=== PATIENT | male | born 1935 | race Caucasian/White ===

== ENCOUNTER 2016-06-16 10:18 | Day surgery (SDC) | payer MEDICARE, OTHER ==
--- NOTE | 2016-06-15 12:11 | PCM.HPSURG ---
Subjective Date of Service: Jun 10, 2016 Referring Provider: Admitting Physician: Primary Care Physician: Janak Bain MD Attending Physician: Vinayak Jordan MD Chief Complaint SEE BELOW History of Present Illness Patient: Naveed Mar Date of : 1935 Visit Type: Pre Op Visit Date: 06/10/2016 10:15 AM Historian: self This 81 year old male presents for PreOp Aidan. L3-5 Lami and Right L5-S1 Lami & Facetectomy. History of Present Illness: 1. PreOp Aidan. L3-5 Lami, Right L5-S1 Lami & Facetectomy David Mar is a 81-year-old man referred by Primary Care provider (PCP) Dr. Franklin Bain with Script Supervisor Dr. Soha Cota M.D. who presents today' s date 06/10/2016 for a preoperative type of appointment concerning the decision for surgery involving bilateral L3-4 & L4-5 laminectomy, right L5-S1 laminectomy & facetectomy secondary to a diagnosis of lumbar spinal stenosis with radiculopathy with related complaints of severe, intractable, and debilitating lower back pain radiating to the right lower extremity. Incidentally the patient fell yesterday developed left torso pain. [facility] Emergency Department evaluation & imaging showed no fractured ribs therefore the patient likely suffered a contusion with pulled intercostals; & records request is pending. The patient's Neurosurgeon Dr. Vinayak Jordan M.D. was notified & has agreed to continue with surgery if the patient was properly consented for the possibility of increased pain secondary to operative positioning, denied significant shortness of breath, obtained recommended Cardiology clearance & participated in recommended breathing exercises postoperatively. The related symptoms are constant in frequency, aching in quality, mostly right posterior leg pain radiating to the heel for several months. The pain is rated 7 out of 10 on the analog pain scale. The symptoms have been worse in the right lower extremity compared to the lower back. There is no reported numbness and paresthesias in the right lower extremity distribution. Although the patient does complain of weakness in right lower extremity. The symptoms are worse with most activities of daily living including weightbearing, standing up straight, & ambulating. They improve only transiently with rest, analgesics, & activity modification. IMAGING: MRI scan of the lumbar spine demonstrates severe central stenosis & lateral recess stenosis at L3-4 & L4-5 & severe right-sided neuroforaminal stenosis at L5-S1. There is autofusion at L5-S1 disc space & severe hypertrophy in the L5-S1 facet joint causing compression of the L5 nerve root in the mid & lateral foramen. Treatments have included but are not limited to rest, ice, heat, activity modification, analgesics, & short-term relief from L5-S1 interlaminar & right transforaminal epidural steroid injections performed by Dr Abhilash Sharpe D.O. The patient denies any related complete or acute loss of control of bowel or bladder function, saddle paresthesia or anesthesia. After last evaluating the patient on 06/03/2016 Dr. Vinayak Jordan M.D. documented his clinical impression was intractable severe right leg pain. The results of the diagnostic injection suggest L5-S1 foramen. Pathology. The patient also has significant stenosis at L3-4 percent L4-5 levels. Having failed conservative management he is an appropriate candidate for surgical treatment. Dr. Jordan neurosurgical decompression of the lumbar spine & discussed all the risks and benefits associated with the procedure as well as reasonable expectations with regard to surgical outcomes with the patient and his . They elected to proceed with surgery as planned. The patient has a reported pertinent past medical, surgical, family, & social history for colon resection, prostate TURP, cervical spine, nose, right knee arthroscopically, left knee partial replacement, right eyelid cancer, right knee partial replacement, reported resolved JOSEPH (Intentional Weight-loss 40lbs) Cardiac evaluation for palpitations (Holter monitor 3 Wks & requesting clearance from Script Supervisor Isaak Cowart), hypertension, cataracts, BPH with no other then the above known positive history &/or review of all other organ systems. The patient's related complaints have been a serious detriment to their happiness and activities of daily living. Having failed conservative treatment the patient presents today for their decision for surgery appointment involving bilateral L3-4 & L4-5 laminectomy, L5-S1 right laminectomy & facetectomy for treatment of lumbar spinal stenosis with radiculopathy; related to severe, intractable, & debilitating lower back pain radiating to the right lower extremity. The procedure is scheduled to be performed by Dr. Vinayak Jordan M.D. on 06/16/2016. ANESTHESIA NOTE: The patient has a history of possible cardiac arrhythmia & wore a Holter monitor for approximately 3 weeks he was last evaluated by his Script Supervisor Rolly Cota MD on 04/20/2016. The patient also has JOSEPH which she reports resolved after losing 40 pounds. We will request clearance documentation from Cardiology & [facility] Sleep Study documentation for Preoperative Anesthesia Consultation review. PHYSICAL EXAM General: This is a well-developed, well-nourished, male who is alert, cooperative, & appears to be in no acute distress with language and speech that is intact & fluent. There is no evidence of recent or remote memory impairment. HEENT: Head is normocephalic, atraumatic. Neck: Non-tender, decreased range of motion. Stone's, Lhermittes & Distraction is negative, & No adenopathy. Lungs: Clear to auscultation bilaterally. Heart: Regular rate as 4 systolic II/ systolic ejection murmur in the right upper sternal border Chest: Positive left substernal costal tenderness to palpation & mild-moderate pain with laughing. Abdomen: Soft, & non-tender. Back: No gross scoliosis, & non-tender. Extremities: No peripheral edema. Radial, dorsalis pedis pulses 2+ bilaterally. Fabers is [NEGATIVE] for hip pathology. Straight leg raise is [NEGATIVE]. Tinel 's & Phalen's are [NEGATIVE] with no tenderness over cubital tunnel. Positive moderate tenderness at the right knee. Neurologic: Alert and oriented x 3. Language and speech are intact & fluent. No evidence of recent or remote memory impairment. Fund of knowledge is appropriate for age and level of education. Mood is euthymic. Cranial nerves: Pupils are equal and reactive to light and accommodation. Extra- ocular movements are intact. Visual rollins are intact with direct confrontation bilaterally. Sensation is intact on the face bilaterally. No facial asymmetry. Hearing appear to be intact bilaterally. Palate rises symmetrically. Shoulder shrug is symmetrical. Tongue is midline. Motor strength: [5/5] bilateral deltoid, biceps, triceps, wrist extension, handgrip; hip flexion, knee extension, foot dorsiflexion, plantar flexion, & extensor hallucis longus. Deep Tendon Reflexes: [1 +] biceps, [1 +] brachioradialis, [1 +] triceps, [1 +] knee jerks, [absent] ankle jerks. Toes are down-going to plantar stimulation. Houston's sign is [NEGATIVE]. Muscle Bulk and Tone: Intact in the upper & lower extremities. Sensation: Diminished pinprick and light touch in the distal dorsal aspect of the right foot. Coordination: Intact [id number] & [id number], rapid alternating movements in the upper & lower extremities. Gait: Gait is antalgic favoring the right lower extremity. Romberg is negative. 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 Review of Systems System Neg/Pos Details Constitutional Negative Chills and fever. Bony/Lymph Negative Blood clots. Neuro Negative Dizziness, headache and seizures. ENMT Negative Hearing loss. GI Negative Abdominal pain, constipation, diarrhea, nausea and vomiting. Negative Dysuria, urge incontinence and urinary incontinence. MS Negative Back pain, bone/joint symptoms and muscle weakness. Psych Negative Anxiety and depression. Endocrine Negative Weight gain and weight loss. Cardio Negative Chest pain, irregular heartbeat/palpitations, leg swelling and pacemaker. Eyes Negative Double vision and vision loss. Respiratory Negative Dyspnea, apnea and wheezing. Integumentary Negative Mrsa and rash. Vital Signs Height Time ft in cm Last Measured Height Position % 10:00 AM 5.0 9.00 175.26 11/08/2015 Weight/BSA/BMI Time lb oz kg Context % BMI kg/m2 BSA m2 10:00 AM 216.80 98.339 dressed with shoes 32.02 Blood Pressure Time BP mm/Hg Position Side Site Method Cuff Size 10:00 AM 150/78 sitting right automatic adult Temperature/Pulse/Respiration Time Temp F Temp C Temp Site Pulse/min Pattern Resp/ min 10:00 AM 97.4 36.3 temporal 83 18 Pulse Oximetry/FIO2 Time Pulse Ox (Rest %) Pulse Ox (Amb %) O2 Sat O2 LPM Timing FiO2 % L/min Delivery Method 10:00 AM 98 RA Pre-tx Pain Scale Time Pain Score Method 10:00 AM 4/10 Numeric Pain Intensity Scale Comments Time Comments 10:00 AM Sitting still (ER visit last night after fall - bruised ribs) Measured By Time Measured by 10:00 AM Halina Farley RN Physical Exam Exam Findings Details Comments SEE ABOVE Assessment/Plan # Detail Type Description 1. Assessment Spinal stenosis of lumbar region with radiculopathy (M48.06). 2. Assessment Preoperative examination (Z01.818). Patient Plan We including your Attending Surgeon have discussed the risks and benefits associated your scheduled procedure which you have verbally acknowledged understanding including but not limited to the possibility of an outcome that we are unable to predict or was not mentioned. 1. You are scheduled for a L3-4 & L4-5 bilateral laminectomy, right L5-S1 laminectomy & facetectomy with Dr. Vinayak Jordan M.D. at [facility] on 06/16/2016. 2. Check in time is 1300 or 1 PM. Also please ignore instructions below if told otherwise by your preadmission nurse or if you do not take the medications listed below. 3. Nothing to eat after midnight the night before surgery. You may take all of your "approved" medications with small sips of water. Remember to take your a.m. hypertension medication if it is a beta rowan and ends in "olol. Otherwise ask your doctor if you need to hold your a.m. hypertension medication. 4. No aspirin, ibuprofen, Naprosyn, or other NSAIDs starting 7 days prior to surgery. 5. Please stop Warfarin/Coumadin or other blood thinners such as Plavix, Aggrenox, or Xarelto 7 days prior to your surgical procedure and follow specific instructions from your prescribing provider. 6. Please stop Lovenox bridging in the morning one day prior to procedure. 7. Please stop Suboxone/Buprenorphine at least 4 days prior to procedure. 8. Go to the hospital today to get her preoperative testing done. Take the order form to the surgery desk on the second floor of the [facility], [facility] (main entrance next to the emergency entrance). I will notify you if there is any test results that require further workup prior to surgery. 9. Follow the instructions you were given today, use the cleansing cloths the night before as well as the morning of her surgery. 10. If you are prescribed inhalers, CPAP or BiPAP machines you use at home bring along with you to the hospital. 11. ONLY If you take medications for Diabetes: If you have an insulin pump continue lowest (typically night-time) basal rate into the a.m. If you do not have a pump check h your a.m. blood sugar and hold insulin if BS less than 100. If you are taking long-acting, intermediate acting (NPH) or 70/30 preparation : Take half on day of procedure. If you are taking ultra long-acting insulin such as glargine, Lantus either at night or in the a.m. continue as scheduled ( including day of surgery). If you take short acting regular insulin (insulin not delivered via pump) discontinue on day of procedure. 12. Please call if you have any questions before your surgery: [phone]. Today's instructions/counseling include(s) Pre-operative instructions given to the patient and or legal petroleum products sales representative(s) orally and in writing. 13. Our office will contact you if there are any test results that require further workup prior to surgery. Provider Plan The patient's history and examination as well as radiological findings were reviewed with Dr. Vinayak Jordan M.D. and conveyed the patient in detail. The findings are consistent with lumbar spinal stenosis with radiculopathy and are most likely the cause of the patient's severe, intractable, debilitating lower back pain radiating to the right lower extremity. The patient has failed extensive conservative treatment for this condition. The treatment options were discussed with the patient. The options include attempt to live with the condition, reattempt conservative treatment, try a pain management intervention / injection or consider a surgical intervention. We are not extremely optimistic that further conservative treatment, pain management intervention and/or injection will adequately resolve the patient's symptoms of severe, intractable, debilitating low back pain radiating to the right lower extremity. Therefore we recommend L3-4 and percent L4-5 bilateral laminectomy, . The patient was provided/offered educational materials pertaining to their diagnosis and the above discussed procedure. We discussed the risks and benefits associated with this surgery. A spine model was used to explain the nature of this type of surgery. The risk of the required anesthesia was also mentioned including but not limited to organ failure such as heart attack, pneumonia and stroke even . The risk of this type of surgery was also mentioned. Including but not limited to an unsuccessful outcome, residual symptoms, referred or radiating posterior spinal myofascial inflammatory pain or spasm, post operative instability, instrumentation failure, sensory changes, blood loss, blood clots, wound infection, spinal cord or nerve damage, CSF or lymph leak, damage to neighboring structures such as the abdominal vasculature, bowel, ureter, and bladder, resulting in temporary or permanent dysfunction, even disability, paralysis, and . The recovery of this type of surgery was also mentioned. There is a 15% chance of recurrent disc herniation with a discectomy. The chances for improvement of the related right lower extremity lumbar radiculopathy symptomology at one year is 70-80%. The chances of improvement of nonrelated local mechanical lower back pain is 50%. The patient verbalized understanding all the risks and benefits, knowing that it is impossible to predict or guarantee every surgical outcome; and would like to proceed with the above discussed procedure anyways. Surgery is scheduled for 06/16/[address] [facility] preoperative screening tests, medicine restrictions, and logistical protocols apply. Any preoperative testing is within normal limits to undergo the above discussed procedure unless otherwise noted in the medical record. ANESTHESIA NOTE: The patient has a history of possible cardiac arrhythmia & wore a Holter monitor for approximately 3 weeks he was last evaluated by his Script Supervisor Rolly Cota MD on 04/20/2016. The patient also has JOSEPH which she reports resolved after losing 40 pounds. We will request clearance documentation from Cardiology & [facility] Sleep Study documentation for Preoperative Anesthesia Consultation review. Medications (added, continued or stopped this visit): Start Date Medication Directions Stop Date 05/26/2016 amlodipine 5 mg tablet take 1 tablet by oral route every day aspirin 81 mg tablet,delayed release take 1 tablet by oral route every day atorvastatin 40 mg tablet take 1 tablet by oral route every day 10/15/2015 chlorthalidone 25 mg tablet take 1 tablet by oral route every day 06/15/2016 cyclobenzaprine 5 mg tablet take 1 tablet by oral route every 8 hours as needed for spasm 06/10/2016 docusate sodium 250 mg capsule take 1 capsule by oral route 2 times every day Fish Oil Concentrate 1,000 mg capsule 1200mg 1 capsule daily by mouth 12/03/2015 gabapentin 300 mg capsule take 1 capsule by oral route every day Glucosamine Chondroitin Maximum Strength 500 mg-400 mg capsule 1 caps daily by mouth 10/16/2015 losartan 100 mg tablet take 1 tablet by oral route every day melatonin 5 mg capsule 10/15/2015 metoprolol succinate ER 25 mg tablet,extended release 24 hr take 1 tablet by oral route every day 03/22/2014 Multivitamin 1 tablet by mouth daily 05/22/2016 nitroglycerin 0.4 mg sublingual tablet 1 tab under tongue for cp, repeat 1 every 5 min in pain continues up to 3 total. Call 911 if pain not resolving. 06/15/2016 [place] 10 mg-325 mg tablet take 0.5-2 tablet by oral route every 4 - 6 hours as needed for pain omeprazole 20 mg tablet,delayed release 05/25/2016 sildenafil 20 mg tablet take 2-5 tablets by oral route as needed (no more than once every 24 hours) 11/08/2015 tamsulosin 0.4 mg capsule take 1 capsule by oral route every day 1/ 2 hour following the same meal each day tramadol 50 mg tablet take 1 tablet by oral route every 4 hours as needed turmeric root extract 500 mg capsule 03/22/2014 Vitamin D3 1,000 unit tablet 1 tablet daily by mouth zolpidem 5 mg tablet take 1 tablet by oral route every day at bedtime Counseling/Educational Factors: Counseling / educational factors reviewed. Counseling / educational factors reviewed. This is a visit of 60 minutes. 50 minutes were spent counseling. This document may have been created using voice recognition software or other electronic means and may contain inadvertent paraffin machine operator errors. Provider: Tucker CARREON 06/10/2016 03:12 PM Document generated by: Tucker Matamoros 06/10/2016 03:12 PM CC Providers: Janak Bain [address] [place] [address]- Janak Bain [address] [facility] [place], [place] [address]Palomo Cota [address] [place] [address] [address] [place] [address] [address] [place] [address] elisabeth redd s Otoniel o taina g Allergy Allergies: Coded Allergies: Sulfa (Sulfonamide Antibiotics) (Verified Allergy, Unknown, UNKNOWN, ) levofloxacin (Verified Allergy, Unknown, UNKNOWN, 06/11/16) Social History Hx Alcohol Use: No Hx Substance Use: No Hx Tobacco Use: No PMH HEENT History History of ENT Problems?: Yes HEENT History: Positive for:: Cataracts (S/P BILAT EXTRACTIONS) Sinus Problem (Sinusitis S/P SEPTOPLASTY) Denies:: Dysphagia Hearing Problem Cardiovascular History History of Heart Problems?: Yes Cardiovascular History: Positive for:: Cardiac Surgery (03/2012 HEART CATH SHOWED NO OBSTRUCTIVE DISEASE) Chest Pain (02/2014) Heart Murmur (GR II/ TERE @ [facility]USB ECHO 08/2013 EF 55-60%) Hypertension (Hyperlipidemia. ) Irregular Heartbeat (HX OF PAF HOLTER 10/2015-SHORT BURST OF VT) Valvular Heart Disease (MILD MR, MILD -SUSPECT PFO FROM ECHO) Denies:: Congestive Heart Failure Edema Pacemaker Thrombophlebitis Respiratory History of Respiratory Problem: Yes Respiratory History: Positive for:: Chest Surgery (Bilateral Spon. Pneumothorax in high school.) Dyspnea (FALCON-FALL 06/09/16 W/ RIB CONTUSION USING INCENTIVE SPIROMETER) Use of C-PAP Machine (JOSEPH+ W/ CPAP FOR 4 YRS-REPEAT SLEEP STUDY 2012-NO JOSEPH) Denies:: Asthma COPD Emphysema Hemoptysis Pneumonia (Bronchitis that evolved into a pneumonia. ) Tuberculosis Neurological History Hx Neurologic Problems?: Yes Neurological History: Positive for:: CVA (POSSIBLY EARLIER THIS YEAR) Headaches (GIANT CELL ARTERITIS S/P B/L TEMPORAL ARTERY BX'S) Denies:: Alzheimer's Disease Dementia Dizziness Parkinson's Disease Seizures Gastrointestinal History HX of GI Problems?: Yes Gastrointestinal History: Positive for:: Diverticulitis (S/P COLON RESECTION) Gastroesphageal Reflux Heartburn Hiatal Hernia Denies:: Gastrointestinal Bleeding Hepatitis Rectal Bleeding Genitourinary History Hx of Gu Problems?: Yes Genitourinary History: Positive for: Kidney Stones (S/P LT ESWL) Denies: Urinary Tract Infection Other Pertinent History?: HX OF ED, INDURATIO PENIS PLASTICA Female/Male History Reproductive History Male: Positive for: Prostate Problems (BPH W/ LUTS S/ P TURP) Denies: Scrotal Mass Skin History Skin History: Positive for:: History Skin Disorders? (S/P EXC SKIN CA'S-RT EYELID PLUS OTHER SITES) Denies:: Pressure Ulcers Musculoskeletal History Hx Musculoskeletal Problems?: Yes Musculoskeletal History: Positive for:: Back Injury (C/OF BACK PAIN FX C SPINE S/P ?C5 FUSION) Degenerative Joint Joint Replacement (S/P LT UNI KNEE ARTHROPLASTY) Musculoskeletal Trauma (S/P RT KNEE SCOPE HX OF FX ARM RT,STERNUM) Osteoarthritis Psycho Social History Hx of Psycho/Social Problems?: No Psycho Social History: Denies:: Anxiety Bipolar Disorder Hx Depression Suicide Attempt Other History Hx Any Other Health Problems?: Yes Other History: Positive for:: Cancer (SKIN CA'S (ONE ON RT EYELID)) Hospitalization (CHEST PAIN) Denies:: Endocrine Disease Thyroid Disease Diabetes: No Social History Hx Alcohol Use: NoHx Substance Use: NoHx Tobacco Use: No Smoking Status: Unknown if Ever Smoker Tucker Matamoros PA-C Jun 15, 2016 12:11
[2016-06-16] VITALS (14 sets, daily range): BP systolic 122–138; BP diastolic 46–82; PULSE 71–80; RESP 10–20; O2SAT 96–100
[~2016-06-16] VITALS: Ht 175.3 cm; Wt 98.0 kg
[~2016-06-16 10:18] MED LIST: AMLO10TA3 PO; ASPI-973 PO; ATOR40TA69 PO; CHOL100045 PO; GABA-502 PO; GLUC-120 PO; HYG25 PO; LOSA100T29 PO; MELA1CAP3 PO; MELA1TAB10 PO; METO25TA99 PO; MULT-1018 PO; NITR0.4T6 SL; OMEG1CAP99 PO; OMEP20CA11 PO; SILD100T PO; TAMS0.4C29 PO; TRAM50TA2 PO; TUMERIC PO; ZLP5T PO
[2016-06-16] MEDS ORDERED: Rocuronium 10 mg/mL 5 mL Inj ONE ×2 (10:19)
[2016-06-16] MEDS ORDERED: Dexamethasone 4 mg/mL Inj ONE ×2 (10:19)
[2016-06-16] MEDS ORDERED: fentaNYL-PF 50 mCg/mL 2 mL Inj ONE (10:19)
[2016-06-16] MEDS ORDERED: Propofol 10,000 mCg/mL 20 mL Inj ONE ×2 (10:19)
[2016-06-16] MEDS ORDERED: Ondansetron 2 mg/mL 2 mL Inj ONE ×2 (10:19)
[2016-06-16] MEDS: Lactated Ringer's 1,000 ML IV SCH ×4 (10:25→21:50)
[2016-06-16] MEDS ORDERED: CeFAZolin Inj 2 gm / 50mL D5W IV ONE (10:44)
[2016-06-16] MEDS: fentaNYL-PF 50 mCg/mL 2 mL Inj IVPUSH PRN ×6 (12:48→18:21)
[2016-06-16] MEDS ORDERED: MetoCLOpramide 5 mg/mL 2 mL Inj IVPUSH PRN (14:10)
[2016-06-16] MEDS ORDERED: EPHEDrine Sulfate 50 mg/mL Inj IVPUSH PRN (14:10)
[2016-06-16] MEDS ORDERED: Lactated Ringer's 500 ML IV PRN (14:10)
[2016-06-16] MEDS ORDERED: Dexamethasone 4 mg/mL Inj IVPUSH PRN (14:10)
[2016-06-16] MEDS ORDERED: Ondansetron 2 mg/mL 2 mL Inj IVPUSH PRN ×2 (14:10→17:45)
[2016-06-16] MEDS ORDERED: Phenylephrine 10,000 mCg/mL Inj IVPUSH PRN (14:10)
[2016-06-16] MEDS ORDERED: Lactated Ringer's 1,000 ML IV SCH (14:10)
--- NOTE | 2016-06-16 14:10 | PCM.HPANE ---
Patient Data Date of Service: Jun 16, 2016 (1400) Surgeon Admitting Provider: Attending Provider:Vinayak Jordan MD Primary Care Physician:Janak Bain MD Other Provider:Jennifer Jackman Anesthesia Reason for Visit Lumbar Stenosis With Radiculopathy Ht/WT & BMI Height (Feet): 5 Height (Inches): 9.00 Weight (Kilograms): 95.5 Body Mass Index 31.00 Allergies Coded Allergies: Sulfa (Sulfonamide Antibiotics) (Verified Allergy, Unknown, UNKNOWN, ) levofloxacin (Verified Allergy, Unknown, UNKNOWN, 06/11/16) Past Anesthesia History Anesthesia History: Denies:: Anesthesia Reactions, Malignant Hyperthermia Diabetes History Hx Diabetes?: No Current Bedside Blood Glucose: 111 MRSA MRSA: No Medications Blood Thinner: Aspirin Hypertension Medication: Yes (LOSARTAN,AMLODIPINE,CHLORTHALIDONE) Home Meds Incl Beta Sintia: Yes Date Beta Sintia Taken: Jun 16, 2016 Time Beta Sintia Taken: 0930 Reported Medications Tramadol 50 Mg Okxobf86 Mg PO Q4H PRN For Pain Ref 0 06/11/16 Omeprazole 20 Mg Capsule.dr20 Mg PO DAILY Ref 0 01/02/16 Gabapentin 300 Mg Dyonsbp538 Mg PO DAILY Ref 0 01/02/16 Chlorthalidone 25 Mg Ywukqg49 Mg PO DAILY #30 TABLET 01/02/16 Atorvastatin Calcium 40 Mg Gatisq52 Mg PO DAILY #30 07/19/15 [Tumeric] No Conflict Smwtv280 Mg PO DAILY 07/17/15 Amlodipine 10 Mg Tablet5 Mg PO DAILY Ref 0 07/17/15 Gluc 2Kcl/Chondr/Stone Hy/Hy AC (Glucosamine & Chondroitin Cap)1 Each Capsule1 Each PO DAILY 07/17/15 Zolpidem (Ambien)5 Mg Tab5 Mg PO HS PRN For Insomnia 30 Days Ref 0 03/12/14 Cholecalciferol (Vitamin D3) (Vitamin D)1,000 Unit Capsule1,000 Unit PO DAILY # 1 BOTTLE Ref 0 03/12/14 Sildenafil Citrate (Viagra)100 Mg Qutrpy42-62 Mg PO DAILY PRN ED Ref 0 03/12/14 Tamsulosin ER 0.4 Mg Cap.er.24h0.4 Mg PO PM 30 Days Ref 0 03/12/14 Nitroglycerin SL 0.4 Mg Tab.subl0.4 Mg SL PRN For Chest Pain 03/12/14 Multivitamin (Multi Vitamin Daily)1 Each Tablet1 Each PO DAILY 30 Days Ref 0 03/12/14 Metoprolol Succinate ER 25 Mg Tab.er.24h25 Mg PO DAILY 30 Days Ref 0 03/12/14 Melatonin (Melatonin 1 mg Tablet)1 Each Tablet5 Mg PO HS Ref 0 03/12/14 Losartan Potassium 100 Mg Duhfjg792 Mg PO DAILY 03/12/14 Holmes-3 Fatty Acids/Fish Oil (Fish Oil 1,200 mg Softgel)1 Each Capsule1 Each PO DAILY 03/12/14 Aspirin 81 Mg Tablet.dr81 Mg PO DAILY #1 BOTTLE Ref 0 03/12/14 Discontinued Reported Medications Melatonin/Herbal Complex #184 (Sleep Softgel)1 Each Capsule1 Each PO PRN 07/19/15 Esomeprazole Magnesium (Nexium)20 Mg Capsule.dr20 Mg PO DAILY Ref 0 01/02/16 History History of ENT Problems?: Yes HEENT History: Positive for:: Cataracts (S/P BILAT EXTRACTIONS) Sinus Problem (Sinusitis S/P SEPTOPLASTY) Denies:: Dysphagia Hearing Problem Hx of Heart Problems?: Yes Cardiovascular History: Positive for:: Cardiac Surgery (03/2012 HEART CATH SHOWED NO OBSTRUCTIVE DISEASE) Chest Pain (02/2014) Heart Murmur (GR II/ TERE @ [facility] ECHO 08/2013 EF 55-60%) Hypertension (Hyperlipidemia. ) Irregular Heartbeat (HX OF PAF HOLTER 10/2015-SHORT BURST OF [place]) Valvular Heart Disease (MILD MR, MILD -SUSPECT PFO FROM ECHO) Denies:: Congestive Heart Failure Edema Pacemaker Thrombophlebitis Hx of Respiratory Problem?: Yes Respiratory History: Positive for:: Chest Surgery (Bilateral Spon. Pneumothorax in high school.) Dyspnea (FALCON-FALL 06/09/16 W/ RIB CONTUSION USING INCENTIVE SPIROMETER) Use of C-PAP Machine (JOSEPH+ W/ CPAP FOR 4 YRS-REPEAT SLEEP STUDY 2012-NO JOSEPH) Denies:: Asthma COPD Emphysema Hemoptysis Pneumonia (Bronchitis that evolved into a pneumonia. ) Tuberculosis Hx Neurologic Problems?: Yes Neurological History: Positive for:: CVA (POSSIBLY EARLIER THIS YEAR) Headaches (GIANT CELL ARTERITIS S/P B/L TEMPORAL ARTERY BX'S) Denies:: Alzheimer's Disease Dementia Dizziness Parkinson's Disease Seizures Hx of GI Problems?: Yes Gastrointestinal History: Positive for:: Diverticulitis (S/P COLON RESECTION) Gastroesphageal Reflux Heartburn Hiatal Hernia Denies:: Gastrointestinal Bleeding Hepatitis Rectal Bleeding Hx of Problems?: Yes Genitourinary History: Positive for:: Kidney Stones (S/P LT ESWL) Denies:: Urinary Tract Infection Other Pertinent History: HX OF ED, INDURATIO PENIS PLASTICA Male Hx: Positive for:: Prostate Problems (BPH W/ LUTS S/P TURP) Denies:: Scrotal Mass Testicular Surgery Skin History: Positive for:: History Skin Disorders? (S/P EXC SKIN CA'S-RT EYELID PLUS OTHER SITES) Denies:: Pressure Ulcers Hx Musculoskeletal Problems?: Yes Musculoskeletal History: Positive for:: Back Injury (C/OF BACK PAIN FX C SPINE S/P ?C5 FUSION) Degenerative Joint Joint Replacement (S/P LT UNI KNEE ARTHROPLASTY) Musculoskeletal Trauma (S/P RT KNEE SCOPE HX OF FX ARM RT,STERNUM) Osteoarthritis Hx of Psycho/Social Problems?: No Psycho Social History: Denies:: Anxiety Bipolar Disorder Hx Depression Suicide Attempt Hx Surgeries?: Yes (C5 neck, TURP, Colon resection, LT UNI total knee, B. cataract. Nose. ) Hx Any Other Health Problems?: Yes Other History: Positive for:: Cancer (SKIN CA'S (ONE ON RT EYELID)) Hospitalization (CHEST PAIN) Denies:: Endocrine Disease Thyroid Disease History Blood Transfusions: Denies:: Blood Transfuse Reaction Blood Transfusions Hx Diabetes: NoBedside Blood Glucose: 111 Hx Alcohol Use: NoHx Substance Use: No Smoking Status: Unknown if Ever Smoker Have You Smoked inLast 12 mo: No Stop/Bang S-Snoring: Do You Snore Loudly: Yes T-Tired: feel tired, fatigued: Yes O-Obsered: Observed not breath: No P-Blood Pressure: treated: Yes B- Body Mass Index > 35 kg/m2: No A- Age over 50: Yes N- Neck Large Circumference: No G- Gender Male: Yes JOSEPH Total Score: 5 JOSEPH Risk Assessment: High Risk, =/>3 Yes Risk Assessment Category Category 1A: Patient has history of documented sleep apnea, and HAS NOT received any narcotic, sedative or anesthesia administration during this stay. Category 1B: Patient has history of documented sleep apnea, and HAS received any narcotic , sedative or anesthesia administration during this stay Category 2: Patient has SUSPECTED Obstructive Sleep Apnea, and HAS received any narcotic , sedative or anesthesia administration during this stay. Category 3: Patient has SUSPECTED Obstructive Sleep Apnea and HAS NOT received narcotic, sedative or anesthesia administration during this stay. Category 4: Outpatient in Procedural Areas with known sleep apnea or who screen positive for High Risk via the STOP/BANG questionnaire. Exam Exam Vital Signs Vital Signs Date Time Temp Pulse Resp B/P Pulse Ox O2 Delivery O2 Flow Rate FiO2 06/16/16 11:09 36.1 80 18 134/78 96 Room Air General Appearance: Alert, Oriented X3 HEENT/AIRWAY: MP 1 Lungs: Clear to Auscultation Heart: Exam Unremarkable Meds/Labs/Diagnostics Admission Meds Current Medications Lactated Ringer's (Lr) 1,000 ml @ 10 mls/hr Q24H IV Last administered on t 10:25; Start 06/16/16 at 05:00; Stop 06/20/16 at 08:59 Bedside Blood Glucose: 111 Plan Impression Patient chart reviewed, patient interviewed and anesthestic plan with risks, benefits, and alternatives discussed, and informed consent obtained. NPO Status: 9pm ASA Physical Status: ASA3 Severe Disease Anesthetic Plan: GA Bene/Risks/Altern/Consents: Yes HP Complete Prior to Induction: Yes Other discussed recent rib bruising, elects to proceed. Herminio Davila MD Jun 16, 2016 14:10
[2016-06-16] MEDS ORDERED: Thrombin Powder 5,000 Unit TOPICAL ONE (14:15)
[2016-06-16] MEDS ORDERED: Bacitracin 50,000 unit Inj ONE (14:16)
[2016-06-16] MEDS ORDERED: Bupivacaine Liposome 1.3% 20 mL Inj ONE (14:16)
[2016-06-16] MEDS ORDERED: Bupivacaine-MPF 0.25%/EPI 30 mL Inj INJ ONE (15:05)
--- NOTE | 2016-06-16 15:11 | DRSVH ---
PROCEDURE: X-RAY LUMBAR SPINE, 1 VIEW INDICATIONS: L3-5, L5-S1 LAMINECTOMIES TECHNIQUE: 1 views of the lumbar spine were acquired. COMPARISON: Outside Film, CT, CT LUMBAR SPINE WO CON, 06/03/2016, 14:42. FINDINGS: Intraoperative localizer is posterior to the L5-S1 disc. IMPRESSION: Localizer at the L5-S1 disc level. Findings telephoned to Dr. Jordan on 06/17/2015 at 1509 hrs. Dictated by: Nyasia Groves MD, PhD on 06/16/2016 at 15:08 Approved by: Nyasia Groves MD, PhD on 06/16/2016 at 15:10
[2016-06-16] MEDS ORDERED: Lactated Ringer's 1,000 ML IV ONE (17:09)
--- NOTE | 2016-06-16 17:32 | PCM.ANEP1 ---
Post Anesthesia Phase 1 PACU Phase 1 Assessment Date of Service: Jun 16, 2016 (9565) Vital Signs 36.4, 72, 14, 99%, 135/74 Vital Signs Date Time Temp Pulse Resp B/P Pulse Ox O2 Delivery O2 Flow Rate FiO2 06/16/16 11:09 36.1 80 18 134/78 96 Room Air Anesthetic Administered: GA Level of Alertness: Sleepy, easy to arouse FINE's with Equal Strength: Yes Pain: No Nausea or Vomiting: No Oxygen Delivery: Simple Mask Lungs: Clear to Auscultation Dermatome Level: Full Sensation Summary UNEVENTFUL Herminio Carlson MD Jun 16, 2016 17:32
--- NOTE | 2016-06-16 17:33 | PCM.ANEP2 ---
Post Anesthesia Evaluation ASA/CMS Post Anesthesia VS in Patient's Normal Range?: Yes Resp Stable; Airway Patent?: Yes CV Function & Hydration Stable: Yes Mental Status Recovered?: Yes Pain control Satisfactory?: Yes N/V Control Satisfactory?: Yes Herimnio Davila MD Jun 16, 2016 17:33
[2016-06-16] MEDS ORDERED: Senna-Docusate 8.6-50 mg Tablet PO PRN (17:45)
[2016-06-16] MEDS ORDERED: Magnesium Hydroxide 10 mL Oral Concentration PO PRN (17:45)
[2016-06-16] MEDS ORDERED: Sodium Biphos-Phos 133 mL Enema RECTAL PRN (17:45)
[2016-06-16] MEDS ORDERED: HYDROcodone-APAP 10-325 mg PO PRN (17:45)
[2016-06-16] MEDS ORDERED: Polyethylene Glycol (PEG) 17 Gm Powder PO PRN (17:45)
[2016-06-16] MEDS ORDERED: HYDROcodone-APAP 5-325 mg Tablet PO PRN (17:45)
[2016-06-16] MEDS: HYDROmorphone 1 mg/mL Inj IVPUSH PRN ×5 (17:47→22:41)
[2016-06-16] MEDS ORDERED: hydrOXYzine Pamoate 25 mg Capsule PO PRN (18:15)
[2016-06-16] MEDS: Acetaminophen IV 1,000 MG in IV Premix 1 EACH IV SCH (21:15)
[2016-06-16] MEDS ORDERED: CeFAZolin Inj 2 GM in IV Premix 1 EACH IV SCH (22:00)
[2016-06-16 22:12] LABS: APPEARANCE,URINE CLEAR (CLEAR,HAZY); COLOR,URINE YELLOW (YELLOW); OCCULT BLOOD,URINE NEGATIVE (NEGATIVE); UROBILINOGEN,URINE NORMAL (NORMAL)
[2016-06-16] MEDS: Dexamethasone 4 mg/mL Inj IVPUSH SCH (22:22)
[2016-06-16] MEDS: Senna-Docusate 8.6-50 mg Tablet PO SCH (22:22)
[2016-06-16] MEDS: CeFAZolin Inj 2 GM in Dextrose 5% 50 ML IV SCH (22:41)
--- NOTE | 2016-06-16 23:00 | NUR ---
Post op Pt arrived to OSC room 1001 from PACU at 1945. Pt is a little drowsy but answers questions appropriately, oriented x3. Neuro intact with equal strength bilaterally. Pt rates pain 5/10 to left shoulder and back. Back has Island dressing that is CDI and MELINDA off to the right with serosanguineous drainage. Pt had scheduled IV Tylenol with some relief per pt. Pt up to bedside 1PA and FWW to use urinal, voiding without issues. Pt denies nausea and will advance diet as tolerated, so far pt has had jello and juice. Pt now on RA with CPOx upper 90s O2 sats. Continue close monitoring.
--- NOTE | 2016-06-17 00:02 | OP ---
[address] [address] OPERATIVE REPORT PATIENT: FARNAZ MCKEON : 1935 MR#: [id number] ADMIT: 06/16/2016 JOB ID: [id number] DATE OF SURGERY: 06/16/2016 SURGEON: Vinayak Jordan MD PREOPERATIVE DIAGNOSIS(ES): Bilateral L3-4, bilateral L4-5 and right L5-S1 stenosis with compression of bilateral L3-L4, L5 and right S1 nerve roots. POSTOPERATIVE DIAGNOSIS(ES): Bilateral L3-4, bilateral L4-5 and right L5-S1 stenosis with compression of bilateral L3-L4, L5 and right S1 nerve roots. PROCEDURE: 1. Bilateral L3, bilateral L4, right L5 laminectomy, partial facetectomy, foramenotomy 2. Heber of subcutaneous fat through a separate skin incision. ATTENDING SURGEON: Vinayak Jordan MD LEAF BINNER: Tucker Matamoros PA-C. Treating Plant Operator provided irrigation, retraction and suction and was medically necessary for the procedure. DESCRIPTION OF PROCEDURE: The patient was brought to the operating room. General anesthesia with oral intubation was administered. The patient was positioned prone on the laminectomy frame. The back was prepped and draped in a sterile fashion. All extremities were padded. Compression boots were applied to legs. Time-out was performed. IV Ancef was given. Skin and paraspinal muscles were injected with Marcaine containing epinephrine. Midline incision was made from L3 down to S1. Incision was carried down through subcutaneous tissue and the right side of the spinous process. The paraspinal muscles were stripped off the right side of the spine and an x-ray was taken with the instrument pointed at the L5-S1 disc level to confirm the levels for the procedure. A deep self-retaining retractor system was placed. High speed bur was used to remove the inferior portion of the right L3 and right L4 and right L5 hemilamina. Severely thickened yellow ligament and hypertrophied medial facet was removed at each level with the high-speed bur and curette and Kerrison rongeur and the thecal sac and lateral recess for the right L4-L5 and S1 nerve roots were decompressed and the proximal foramen for the right L3 nerve root was decompressed. The table was then tilted and the spinous process was undercut at L3 and L4 and the yellow ligament was resected across the midline all the way out to the left side of the spinal canal where the left L3. L4 and L5 nerve roots were decompressed. A total facetectomy was then performed on the right at L5-S1. The L5 nerve root was encased in bone. There was previous autofusion of the disk space confirmed on CT scan so the complete facet could be removed. The nerve root was skeletonized using a anival bur and all surrounding bone was removed, completely decompressing the full extent of the L5 nerve root. Hemostasis was obtained with bipolar cautery, Gelfoam soaked in thrombin and FloSeal. The wound was irrigated. A separate but continues skin incision was made and a piece of subcutaneous fat was harvested and this was placed on the L5 nerve root to act as an adhesion barrier. A 10-Portuguese round MELINDA drain was left against the spine and brought out through a separate stab incision connected to a MELINDA bulb. The wound was closed with 0-Vicryl fascia, 2-0 Vicryl in subcutaneous tissue, and 4-0 Vicryl in subcuticular and in the skin. Steri-Strips and sterile dressing were applied. Patient was turned supine, extubated, and brought to recovery in stable condition. There were no complications. ESTIMATED BLOOD LOSS: 100 cc. MTDD
[2016-06-17 00:41] VITALS: BP 131/74; PULSE 71; RESP 20; O2SAT 96
[2016-06-17] MEDS: HYDROmorphone 1 mg/mL Inj IVPUSH PRN (01:10)
[2016-06-17] MEDS: Lactated Ringer's 1,000 ML IV SCH ×4 (01:45→23:43)
[2016-06-17] MEDS: Acetaminophen IV 1,000 MG in IV Premix 1 EACH IV SCH ×4 (02:41→16:51)
[2016-06-17 04:11] VITALS: BP 130/71; PULSE 71; RESP 20; O2SAT 97
[2016-06-17] MEDS: Dexamethasone 4 mg/mL Inj IVPUSH SCH ×3 (04:14→15:10)
--- NOTE | 2016-06-17 04:44 | NUR ---
Pain Pt reporting pain to back/shoulder up to 7/10 and down to 4/10 with pain meds. After discussing pain med options pt requested to have Dilaudid 0.5mg IV at first overnight and transition to oral pain meds this morning. Tramadol 50 mg PO given this morning. Pt reports he has been wide awake all night and reports "not feeling tired at all" Pt drinking adequate fluids, IV was saline locked.
[2016-06-17] MEDS: CeFAZolin Inj 2 GM in Dextrose 5% 50 ML IV SCH (06:15)
[2016-06-17] MEDS: Pantoprazole 40 mg ER24 Tablet PO SCH (09:06)
[2016-06-17] MEDS: Senna-Docusate 8.6-50 mg Tablet PO SCH ×2 (09:07→22:00)
[2016-06-17] MEDS: MeTOProlol XL 25 mg ER24 Tablet PO SCH (09:14)
--- NOTE | 2016-06-17 10:59 | PCM.PNSURG ---
Subjective Date of Service: Jun 17, 2016 Visit Information: Reason for Visit Lumbar Stenosis With Radiculopathy Surgery/Surgery Date Post-Op Day # Date of Admission: Hospital Day # Subjective: Naveed Mar is a 81 year old male who presents on the date 06/17/2016 post operative day #1 status post Bilateral L3-4 & L4-5 laminectomy & decompression, right L5-S1 laminectomy, decompression & facetectomy with harvest of subcutaneous fat for epidural graft from separate incision . The patient has a history of left rib contusion & possible strain of intercostals after ground- level fall without loss of consciousness last week prior to surgery with negative chest x-ray report for rib fracture. The patient's overnight course was as expected with rib, & surgical site pain with discomfort. The patient does report that he had difficulty sleeping postoperatively. Currently the patient has back & rib pain with unsteadiness involving ambulation. The patient was evaluated by physical therapy who is recommending remain overnight for reevaluation in the a.m. with home health RN & physical therapist. There is significant improvement the residual lumbar spinal stenosis related right lower extremity symptoms. The patient also agrees to follow the instructions and using the incentive spirometry regularly as recommended. The patient denies headache, severe sore throat, severe chest pain, shortness or breath, abdominal pain, nausea, vomiting, constipation, diarrhea, or any other new onset and location of pain, weakness, numbness or paresthesias aside from the surgical site. Objective Objective This is a well developed, well nourished, elderly male who is alert, cooperative , and appears to be in no acute distress with pleasant affect & euthymic mood. Exam of the head is normocephalic. PERRL, EOMI, without facial droop, hearing grossly intact, nostrils patent, oral cavity and pharynx normal. Voice is within normal limits Exam or the heart reveals regular rate and rhythm without audible murmurs The lungs are clear to auscultation bilaterally There is tenderness to palpation in the left middle-inferior costal region. The abdomen is non- tender and non-distended Exam of the lumbar surgical wound reveals that it is clean, dry, and intact, without signs of infection, inflammation, and/or hematoma. There is greater than 30 mL output from the surgical drain the last 8 hours. Gross exam of the extremities reveals strength & sensation are grossly intact within the patient's normal baseline limits. Vital Sign- Last 8 Hours Date Time Temp Pulse Resp B/P Pulse Ox O2 Delivery O2 Flow Rate FiO2 06/17/16 04:11 36.6 71 20 130/71 97 Nasal Cannula 2.00 Intake and Output- Last 8 Hour 06/17/16 Cumulative From/Thru 07:00 06/11/16 18:03 - 06/17/16 06:16 Intake Total 1538 ml 2738 ml Output Total 1250 ml 1350 ml Balance 288 ml 1388 ml Intake Oral 500 ml 500 ml IV Total 1038 ml 2238 ml Output Urine Total 1100 ml 1100 ml Drainage Total 150 ml 150 ml Estimated Blood Loss 100 ml # Bowel Movements 0 0 Assessment & Plan Impression 1. Postop day #1 status post bilateral L3-4 & L4-5 laminectomy, right L5-S1 laminectomy & facetectomy with harvest of subcutaneous fat from incision for epidural graft. 2. Likely left rib contusion Problems: Plan 1. Follow usual postoperative lumbar spinal surgical protocols for treatment overnight & reevaluation tomorrow. 2. Recommend the Occupational Therapy evaluation today & physical therapy reevaluation for discharge tomorrow. 3. Repeat chest x-ray status post fall with left rib contusion & prone surgical positioning with increased chest pain. 4. Encourage improved pain management including by mouth narcotic analgesics if necessary with regular stool softeners to avoid constipation. 6. Social work to arrange home health RN & physical/occupational therapist BERONICA & give patient home health contact information prior to discharge likely tomorrow. 7. Encourage regularly recommended incentive spirometry. Attending Statement: All documentation reviewed & orders authorized by Dr. Vinayak Jordan M.D. copies to: Janak Bain MD, Scott PA-C Jun 17, 2016 10:59
--- NOTE | 2016-06-17 13:57 | DRSVH ---
PROCEDURE: X-RAY CHEST, TWO VIEWS ([id number]) INDICATIONS: rib pain TECHNIQUE: 2 views of the chest were acquired. COMPARISON: [facility], CR, CHEST 1VW (PORTABLE), 03/11/2014, 23:23. [facility], C R, CHEST 1 VIEW, 07/14/2015, 16:06. FINDINGS: Surgical changes and devices: None. Lungs and pleura: No pleural effusions or pneumothorax. Lungs are clear. Mediastinum: Mediastinal contours are normal. Heart size is enlarged. Bones and chest wall: No suspicious bony abnormalities. Soft tissues appear unremarkable. IMPRESSION: No acute cardiopulmonary disease. Dictated by: Guillermo ORANTES Interpreted: Mendy Saunders MD on 06/17/2016 at 13:56 Transcribed by: ISHAN on 06/17/2016 at 13:56 Approved by: Mendy Saunders M.D. on 06/17/2016 at 16:54
--- NOTE | 2016-06-17 16:33 | NUR ---
Evaluation completed. Please go to "Notes" then click on "Assessments and Notes" (bottom left corner of screen). Then select appropriate discipline tab on top of screen.
[2016-06-17 16:40] VITALS: BP 122/66; PULSE 76; RESP 18; O2SAT 97
--- NOTE | 2016-06-17 18:19 | NUR ---
Ambulation Pt up wit6h FWW SBA 1 assist. Steady gait. Needs to stand slowly to prevent lightheaded. Pain controlled with 1 Vicodin and Vistaril or 1 Tramadol. Care continues
[2016-06-17 19:47] VITALS: BP 117/61; PULSE 73; RESP 20; O2SAT 96
--- NOTE | 2016-06-18 03:23 | NUR ---
Constipation/Sleep Patient's concerned this evening is relieving constipation. He is concerned about taking Miralax or MOM because of having to get up during the night. He would like to ask Tucker or physician for a suppository before he is discharged in the morning. Patient states he has not slept for two nights so sleeping this evening is a concerned. Ambien, tramadol administered. Two hours later, Flexeril administered for back pain/tightness. VSS. Pulse ox at 94% ra. Patient resting comfortably. Call light within reach. Care continues.
[2016-06-18 04:33] VITALS: BP 135/74; PULSE 67; RESP 20; O2SAT 98
[2016-06-18] MEDS: Pantoprazole 40 mg ER24 Tablet PO SCH (06:55)
[2016-06-18] MEDS: Lactated Ringer's 1,000 ML IV SCH (09:45)
[2016-06-18] MEDS: Senna-Docusate 8.6-50 mg Tablet PO SCH (10:03)
[2016-06-18] MEDS: MeTOProlol XL 25 mg ER24 Tablet PO SCH (10:04)
--- NOTE | 2016-06-18 10:09 | PCM.DISURG ---
Surgical Discharge Instruction Date of Service Jun 18, 2016 Dates of Hospitalization Date of Hospital Admission 06/16/2016 outpatient with a bed status Providers Admitting Physician: Primary Care Physician: Janak Bain MD Attending Physician: Vinayak Jordan MD Discharge Diagnosis Discharge Diagnosis Status post Bilateral L3-4 & L4-5 laminectomy & decompression, right L5-S1 laminectomy, decompression & facetectomy with harvest of subcutaneous fat for epidural graft from separate incision Post Operative diagnosis Status post Bilateral L3-4 & L4-5 laminectomy & decompression, right L5-S1 laminectomy, decompression & facetectomy with harvest of subcutaneous fat for epidural graft from separate incision Additional Instructions Discharge Instructions Lumbar Spinal Laminectomy & Decompression Postoperative Instructions What is my recovery like? The hospital stay is usually overnight with discharge the next day. Occasionally patient stay an additional night if needed. A lumbar brace is worn for comfort only. What are my restrictions? You should not lift anything heavier than five pounds. You should not perform any excessive bending from the waist or twisting movements. Can I Shower? You may shower when you go home. You must remove the outside dressing on the 7th day after surgery, or change as needed if soiled or saturated (replacing new sterile gauze & water proof dressing) otherwise leave alone. The remaining small pieces of tape (steri-strips) directly on top of the incision may get wet. The steri-strips will fall off on their own. Can I drive? No, you should not drive until specifically given permission from your Doctor in a follow up appointment. Most Patient's can drive in 2-3 weeks if they are not taking narcotic pain medications or muscle relaxers. You may ride in a car, but should avoid trips longer than two hours in duration. When can I return work / sports? Your Doctor will discuss your return to work with you on your first postoperative follow-up appointment. Most patients may return to work within 2 weeks for sedentary jobs. More physically demanding jobs may require 3-6 months of healing before such work can be considered. When should I call the doctor? You should call your Doctor or go to the Emergency Department if you develop chest pain, shortness of breath, oversedation, a temperature greater than 101.5 F, severe uncontrolled pain or weakness, loss of bowel or bladder function, choking, lots or drainage, pus discharge or constipation. Instructions Regarding Comfort & Pain Medication Use: During the recovery period , even with the use of pain medication, you may experience pain at the site of surgery. You may also have the same type of pain you had before surgery. Please use your pain scale as a guide for taking your pain medication. When your pain is greater than 4 out of 10, or when your pain reaches your personal tolerable level of pain, take your pain medication as prescribed. Use your pain medication on an 'as needed' basis. This means if your pain level is within your tolerable level of pain you DO NOT need to take the medication. As you get better, you will notice you can increase the time interval between doses and decrease the number of tablets you are taking, gradually taking less and less pain medication. Taking pain medication when it is not necessary (for example when your pain is tolerable or acceptable) can result in dangerous side effects and over- sedation. Signs and symptoms of over-sedation include: drowsiness, excessive sleeping, slow or difficult breathing, slurred speech, impaired thinking, confusion, impaired motor coordination. If you have any of these symptoms stop taking the medication and immediately contact your doctor. IF SYMPTOMS ARE LIFE THREATENING CALL 911. To decrease pain and swelling, frequently apply an ice pack for 20 min intervals with at least one hour off. When to take Acetaminophen for pain? If you don't have liver problems, allergies and/or Tylenol is not in your current pain medication. Take Extra Strength Tylenol 500mg 2 tabs by mouth every 6 hours as needed for pain. DO NOT EXCEED 8 TABS PER DAY. Additional Instructions Please use incentive spirometry regularly as recommended to avoid postoperative lung complications. Follow Up Plan Follow Up Plan Please follow up with physician insurance account assistant and outpatient neurosurgical clinic in 1 week for wound check. Follow-up Provider (F9): Tucker Matamoros PA-C Additional Information Attending Statement All documentation reviewed & orders authorized by Dr. Vinayak Jordan M.D. Tucker Matamoros PA-C Jun 18, 2016 10:09
--- NOTE | 2016-06-18 10:17 | PCM.DC.SUR ---
Discharge Summary Date of Service: Jun 18, 2016 Date of Hospital Admission: Outpatient with a bed status 06/16/2016 Date of Operation(s): 06/16/2016 Date of Discharge: 06/18/2016 Diagnosis at Time of Discharge Status post Bilateral L3-4 & L4-5 laminectomy & decompression, right L5-S1 laminectomy, decompression & facetectomy with harvest of subcutaneous fat for epidural graft from separate incision Problems: Operation Bilateral L3-4 & L4-5 laminectomy & decompression, right L5-S1 laminectomy, decompression & facetectomy with harvest of subcutaneous fat for epidural graft from separate incision Brief History and Physical: Patient: Naveed Mar Date of : 1935 Visit Type: Pre Op Visit Date: 06/10/2016 10:15 AM Historian: self This 81 year old male presents for PreOp Aidan. L3-5 Lami and Right L5-S1 Lami & Facetectomy. History of Present Illness: 1. PreOp Aidan. L3-5 Lami, Right L5-S1 Lami & Facetectomy David Mar is a 81-year-old man referred by Primary Care provider (PCP) Dr. Franklin Bain with Assistive [employer] Dr. Soha Cota M.D. who presents today' s date 06/10/2016 for a preoperative type of appointment concerning the decision for surgery involving bilateral L3-4 & L4-5 laminectomy, right L5-S1 laminectomy & facetectomy secondary to a diagnosis of lumbar spinal stenosis with radiculopathy with related complaints of severe, intractable, and debilitating lower back pain radiating to the right lower extremity. Incidentally the patient fell yesterday developed left torso pain. [facility] Emergency Department evaluation & imaging showed no fractured ribs therefore the patient likely suffered a contusion with pulled intercostals; & records request is pending. The patient's Neurosurgeon Dr. Vinayak Jordan M.D. was notified & has agreed to continue with surgery if the patient was properly consented for the possibility of increased pain secondary to operative positioning, denied significant shortness of breath, obtained recommended Cardiology clearance & participated in recommended breathing exercises postoperatively. The related symptoms are constant in frequency, aching in quality, mostly right posterior leg pain radiating to the heel for several months. The pain is rated 7 out of 10 on the analog pain scale. The symptoms have been worse in the right lower extremity compared to the lower back. There is no reported numbness and paresthesias in the right lower extremity distribution. Although the patient does complain of weakness in right lower extremity. The symptoms are worse with most activities of daily living including weightbearing, standing up straight, & ambulating. They improve only transiently with rest, analgesics, & activity modification. IMAGING: MRI scan of the lumbar spine demonstrates severe central stenosis & lateral recess stenosis at L3-4 & L4-5 & severe right-sided neuroforaminal stenosis at L5-S1. There is autofusion at L5-S1 disc space & severe hypertrophy in the L5-S1 facet joint causing compression of the L5 nerve root in the mid & lateral foramen. Treatments have included but are not limited to rest, ice, heat, activity modification, analgesics, & short-term relief from L5-S1 interlaminar & right transforaminal epidural steroid injections performed by Dr Abhilash Sharpe D.O. The patient denies any related complete or acute loss of control of bowel or bladder function, saddle paresthesia or anesthesia. After last evaluating the patient on 06/03/2016 Dr. Vinayak Jordan M.D. documented his clinical impression was intractable severe right leg pain. The results of the diagnostic injection suggest L5-S1 foramen. Pathology. The patient also has significant stenosis at L3-4 percent L4-5 levels. Having failed conservative management he is an appropriate candidate for surgical treatment. Dr. Jordan neurosurgical decompression of the lumbar spine & discussed all the risks and benefits associated with the procedure as well as reasonable expectations with regard to surgical outcomes with the patient and his . They elected to proceed with surgery as planned. The patient has a reported pertinent past medical, surgical, family, & social history for colon resection, prostate TURP, cervical spine, nose, right knee arthroscopically, left knee partial replacement, right eyelid cancer, right knee partial replacement, reported resolved JOSEPH (Intentional Weight-loss 40lbs) Cardiac evaluation for palpitations (Holter monitor 3 Wks & requesting clearance from Assistive Technology Trainer Isaak Cowart), hypertension, cataracts, BPH with no other then the above known positive history &/or review of all other organ systems. The patient's related complaints have been a serious detriment to their happiness and activities of daily living. Having failed conservative treatment the patient presents today for their decision for surgery appointment involving bilateral L3-4 & L4-5 laminectomy, L5-S1 right laminectomy & facetectomy for treatment of lumbar spinal stenosis with radiculopathy; related to severe, intractable, & debilitating lower back pain radiating to the right lower extremity. The procedure is scheduled to be performed by Dr. Vinayak Jordan M.D. on 06/16/2016. ANESTHESIA NOTE: The patient has a history of possible cardiac arrhythmia & wore a Holter monitor for approximately 3 weeks he was last evaluated by his Assistive Technology Trainer Rolly Cota MD on 04/20/2016. The patient also has JOSEPH which she reports resolved after losing 40 pounds. We will request clearance documentation from Cardiology & [facility] Sleep Study documentation for Preoperative Anesthesia Consultation review. PHYSICAL EXAM General: This is a well-developed, well-nourished, male who is alert, cooperative, & appears to be in no acute distress with language and speech that is intact & fluent. There is no evidence of recent or remote memory impairment. HEENT: Head is normocephalic, atraumatic. Neck: Non-tender, decreased range of motion. Stoen's, Lhermittes & Distraction is negative, & No adenopathy. Lungs: Clear to auscultation bilaterally. Heart: Regular rate as 4 systolic II/ systolic ejection murmur in the right upper sternal border Chest: Positive left substernal costal tenderness to palpation & mild-moderate pain with laughing. Abdomen: Soft, & non-tender. Back: No gross scoliosis, & non-tender. Extremities: No peripheral edema. Radial, dorsalis pedis pulses 2+ bilaterally. Fabers is [NEGATIVE] for hip pathology. Straight leg raise is [NEGATIVE]. Tinel 's & Phalen's are [NEGATIVE] with no tenderness over cubital tunnel. Positive moderate tenderness at the right knee. Neurologic: Alert and oriented x 3. Language and speech are intact & fluent. No evidence of recent or remote memory impairment. Fund of knowledge is appropriate for age and level of education. Mood is euthymic. Cranial nerves: Pupils are equal and reactive to light and accommodation. Extra- ocular movements are intact. Visual rollins are intact with direct confrontation bilaterally. Sensation is intact on the face bilaterally. No facial asymmetry. Hearing appear to be intact bilaterally. Palate rises symmetrically. Shoulder shrug is symmetrical. Tongue is midline. Motor strength: [5/5] bilateral deltoid, biceps, triceps, wrist extension, handgrip; hip flexion, knee extension, foot dorsiflexion, plantar flexion, & extensor hallucis longus. Deep Tendon Reflexes: [1 +] biceps, [1 +] brachioradialis, [1 +] triceps, [1 +] knee jerks, [absent] ankle jerks. Toes are down-going to plantar stimulation. Houston's sign is [NEGATIVE]. Muscle Bulk and Tone: Intact in the upper & lower extremities. Sensation: Diminished pinprick and light touch in the distal dorsal aspect of the right foot. Coordination: Intact [id number] & [id number]-ig-[id number], rapid alternating movements in the upper & lower extremities. Gait: Gait is antalgic favoring the right lower extremity. Romberg is negative. 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 Review of Systems System Neg/Pos Details Constitutional Negative Chills and fever. Bony/Lymph Negative Blood clots. Neuro Negative Dizziness, headache and seizures. ENMT Negative Hearing loss. GI Negative Abdominal pain, constipation, diarrhea, nausea and vomiting. Negative Dysuria, urge incontinence and urinary incontinence. MS Negative Back pain, bone/joint symptoms and muscle weakness. Psych Negative Anxiety and depression. Endocrine Negative Weight gain and weight loss. Cardio Negative Chest pain, irregular heartbeat/palpitations, leg swelling and pacemaker. Eyes Negative Double vision and vision loss. Respiratory Negative Dyspnea, apnea and wheezing. Integumentary Negative Mrsa and rash. Vital Signs Height Time ft in cm Last Measured Height Position % 10:00 AM 5.0 9.00 175.26 11/08/2015 Weight/BSA/BMI Time lb oz kg Context % BMI kg/m2 BSA m2 10:00 AM 216.80 98.339 dressed with shoes 32.02 Blood Pressure Time BP mm/Hg Position Side Site Method Cuff Size 10:00 AM 150/78 sitting right automatic adult Temperature/Pulse/Respiration Time Temp F Temp C Temp Site Pulse/min Pattern Resp/ min 10:00 AM 97.4 36.3 temporal 83 18 Pulse Oximetry/FIO2 Time Pulse Ox (Rest %) Pulse Ox (Amb %) O2 Sat O2 LPM Timing FiO2 % L/min Delivery Method 10:00 AM 98 RA Pre-tx Pain Scale Time Pain Score Method 10:00 AM 4/10 Numeric Pain Intensity Scale Comments Time Comments 10:00 AM Sitting still (ER visit last night after fall - bruised ribs) Measured By Time Measured by 10:00 AM Halina Farley RN Physical Exam Exam Findings Details Comments SEE ABOVE Assessment/Plan # Detail Type Description 1. Assessment Spinal stenosis of lumbar region with radiculopathy (M48.06). 2. Assessment Preoperative examination (Z01.818). Patient Plan We including your Attending Surgeon have discussed the risks and benefits associated your scheduled procedure which you have verbally acknowledged understanding including but not limited to the possibility of an outcome that we are unable to predict or was not mentioned. 1. You are scheduled for a L3-4 & L4-5 bilateral laminectomy, right L5-S1 laminectomy & facetectomy with Dr. Vinayak Jordan M.D. at [facility] on 06/16/2016. 2. Check in time is 1300 or 1 PM. Also please ignore instructions below if told otherwise by your preadmission nurse or if you do not take the medications listed below. 3. Nothing to eat after midnight the night before surgery. You may take all of your "approved" medications with small sips of water. Remember to take your a.m. hypertension medication if it is a beta rowan and ends in "olol. Otherwise ask your doctor if you need to hold your a.m. hypertension medication. 4. No aspirin, ibuprofen, Naprosyn, or other NSAIDs starting 7 days prior to surgery. 5. Please stop Warfarin/Coumadin or other blood thinners such as Plavix, Aggrenox, or Xarelto 7 days prior to your surgical procedure and follow specific instructions from your prescribing provider. 6. Please stop Lovenox bridging in the morning one day prior to procedure. 7. Please stop Suboxone/Buprenorphine at least 4 days prior to procedure. 8. Go to the hospital today to get her preoperative testing done. Take the order form to the surgery desk on the second floor of the hospital, [facility] (main entrance next to the emergency entrance). I will notify you if there is any test results that require further workup prior to surgery. 9. Follow the instructions you were given today, use the cleansing cloths the night before as well as the morning of her surgery. 10. If you are prescribed inhalers, CPAP or BiPAP machines you use at home bring along with you to the hospital. 11. ONLY If you take medications for Diabetes: If you have an insulin pump continue lowest (typically night-time) basal rate into the a.m. If you do not have a pump check h your a.m. blood sugar and hold insulin if BS less than 100. If you are taking long-acting, intermediate acting (NPH) or 70/30 preparation : Take half on day of procedure. If you are taking ultra long-acting insulin such as glargine, Lantus either at night or in the a.m. continue as scheduled ( including day of surgery). If you take short acting regular insulin (insulin not delivered via pump) discontinue on day of procedure. 12. Please call if you have any questions before your surgery: [phone]. Today's instructions/counseling include(s) Pre-operative instructions given to the patient and or legal call center support representative(s) orally and in writing. 13. Our office will contact you if there are any test results that require further workup prior to surgery. Provider Plan The patient's history and examination as well as radiological findings were reviewed with Dr. Vinayak Jordan M.D. and conveyed the patient in detail. The findings are consistent with lumbar spinal stenosis with radiculopathy and are most likely the cause of the patient's severe, intractable, debilitating lower back pain radiating to the right lower extremity. The patient has failed extensive conservative treatment for this condition. The treatment options were discussed with the patient. The options include attempt to live with the condition, reattempt conservative treatment, try a pain management intervention / injection or consider a surgical intervention. We are not extremely optimistic that further conservative treatment, pain management intervention and/or injection will adequately resolve the patient's symptoms of severe, intractable, debilitating low back pain radiating to the right lower extremity. Therefore we recommend L3-4 and percent L4-5 bilateral laminectomy, . The patient was provided/offered educational materials pertaining to their diagnosis and the above discussed procedure. We discussed the risks and benefits associated with this surgery. A spine model was used to explain the nature of this type of surgery. The risk of the required anesthesia was also mentioned including but not limited to organ failure such as heart attack, pneumonia and stroke even . The risk of this type of surgery was also mentioned. Including but not limited to an unsuccessful outcome, residual symptoms, referred or radiating posterior spinal myofascial inflammatory pain or spasm, post operative instability, instrumentation failure, sensory changes, blood loss, blood clots, wound infection, spinal cord or nerve damage, CSF or lymph leak, damage to neighboring structures such as the abdominal vasculature, bowel, ureter, and bladder, resulting in temporary or permanent dysfunction, even disability, paralysis, and . The recovery of this type of surgery was also mentioned. There is a 15% chance of recurrent disc herniation with a discectomy. The chances for improvement of the related right lower extremity lumbar radiculopathy symptomology at one year is 70-80%. The chances of improvement of nonrelated local mechanical lower back pain is 50%. The patient verbalized understanding all the risks and benefits, knowing that it is impossible to predict or guarantee every surgical outcome; and would like to proceed with the above discussed procedure anyways. Surgery is scheduled for 06/16/2016 The standard [facility] preoperative screening tests, medicine restrictions, and logistical protocols apply. Any preoperative testing is within normal limits to undergo the above discussed procedure unless otherwise noted in the medical record. ANESTHESIA NOTE: The patient has a history of possible cardiac arrhythmia & wore a Holter monitor for approximately 3 weeks he was last evaluated by his Assistive Technology Trainer Rolly Cota MD on 04/20/2016. The patient also has JOSEPH which she reports resolved after losing 40 pounds. We will request clearance documentation from Cardiology & [facility] Sleep Study documentation for Preoperative Anesthesia Consultation review. Medications (added, continued or stopped this visit): Start Date Medication Directions Stop Date 05/26/2016 amlodipine 5 mg tablet take 1 tablet by oral route every day aspirin 81 mg tablet,delayed release take 1 tablet by oral route every day atorvastatin 40 mg tablet take 1 tablet by oral route every day 10/15/2015 chlorthalidone 25 mg tablet take 1 tablet by oral route every day 06/15/2016 cyclobenzaprine 5 mg tablet take 1 tablet by oral route every 8 hours as needed for spasm 06/10/2016 docusate sodium 250 mg capsule take 1 capsule by oral route 2 times every day Fish Oil Concentrate 1,000 mg capsule 1200mg 1 capsule daily by mouth 12/03/2015 gabapentin 300 mg capsule take 1 capsule by oral route every day Glucosamine Chondroitin Maximum Strength 500 mg-400 mg capsule 1 caps daily by mouth 10/16/2015 losartan 100 mg tablet take 1 tablet by oral route every day melatonin 5 mg capsule 10/15/2015 metoprolol succinate ER 25 mg tablet,extended release 24 hr take 1 tablet by oral route every day 03/22/2014 Multivitamin 1 tablet by mouth daily 05/22/2016 nitroglycerin 0.4 mg sublingual tablet 1 tab under tongue for cp, repeat 1 every 5 min in pain continues up to 3 total. Call 911 if pain not resolving. 06/15/2016 [place] 10 mg-325 mg tablet take 0.5-2 tablet by oral route every 4 - 6 hours as needed for pain omeprazole 20 mg tablet,delayed release 05/25/2016 sildenafil 20 mg tablet take 2-5 tablets by oral route as needed (no more than once every 24 hours) 11/08/2015 tamsulosin 0.4 mg capsule take 1 capsule by oral route every day 1/ 2 hour following the same meal each day tramadol 50 mg tablet take 1 tablet by oral route every 4 hours as needed turmeric root extract 500 mg capsule 03/22/2014 Vitamin D3 1,000 unit tablet 1 tablet daily by mouth zolpidem 5 mg tablet take 1 tablet by oral route every day at bedtime Counseling/Educational Factors: Counseling / educational factors reviewed. Counseling / educational factors reviewed. This is a visit of 60 minutes. 50 minutes were spent counseling. This document may have been created using voice recognition software or other electronic means and may contain inadvertent epic ambulatory analysts errors. Provider: Tucker CARREON 06/10/2016 03:12 PM Document generated by: Tucker Matamoros 06/10/2016 03:12 PM CC Providers: Janak Bain [address] [place] [address]- Janak Bain [address] [place] [address]- Jacque Cota [address] [place] [address] [address] [place] [address] [address] [place] [address] w w w . s r c l i n i c s . o r g Hospital Course: Hospital Course: The patient was admitted through same day surgery and subsequently underwent a Bilateral L3-4 & L4-5 laminectomy & decompression, right L5-S1 laminectomy, decompression & facetectomy with harvest of subcutaneous fat for epidural graft from separate incision. The patient tolerated the procedure well. The patient was then was transferred to PACU and then to the [facility] floor. The patient was admitted for postoperative pain control, PT/OT, supervised for contused ribs, advanced age, constipation, transient postoperative anesthesia related contact fusion, history of possible arrhythmia with cardiac workup and clearance prior to surgery, etc. Co-morbidities with nurse monitoring, extended recommended physical therapy evaluation, continuous pulse oximetry, and discharge planning with home health physical therapist & R and recommended. The Patient's overnight course much improved. However the patient continues to have difficulty with sleep & constipation. Currently the patient has complaints of surgical site pain & discomforts are minor & controlled with tramadol & IV Tylenol. There is significant improvement of the patient's residual lumbar spinal stenosis symptoms related to his leg. The patient is showing significant improvement in this morning with physical therapy re- evaluation & nursing reported reduced surgical drain output cream at low risk for postoperative epidural hematoma. The patient denies headache, severe sore throat or dysphagia, chest pain, shortness of breath, abdominal pain, nausea, vomiting, constipation, diarrhea, or any new onset &/or location of pain, weakness or paresthesias aside from the surgical site. PHYSICAL EXAM This is a well developed, well nourished, elderly male who is alert, cooperative , and appears to be in no acute distress with a [] affect & euthymic mood. Exam of the head is normocephalic. PERRL, EOMI, without facial droop, hearing grossly intact, nostrils patent, oral cavity and pharynx normal. Voice is within normal limits Exam or the heart reveals regular rate and rhythm without audible murmurs Left mid-lower ribs tender to palpation The lungs are clear to auscultation bilaterally. The abdomen is non- tender and non-distended. Exam of the lumbar surgical wound reveals that it is clean, dry, and intact; without signs of infection, inflammation, and/or hematoma. There is less than 30 mL output from surgical drain in the last 8 hour period. Gross exam of the extremities reveals strength & sensation are grossly intact within the patient's normal baseline limits except the patient is able to stand up straighter with ambulation. The patient was eventually able to get out of bed and ambulate within acceptable limits. Therapy services made recommendations for disposition. Flatus was appreciated and the patient was able to void without significant difficulty. The pain was gradually under control. The patient was afebrile on discharge. The patient's incision(s) was clean, dry and intact. The dressing was changed to the Surgeon's specifications. The output from the wound drain was less then 30cc's in an 8 hour period at discharge and therefore the drain was removed. The patient progressed well with rehabilitation and was subsequently discharged to home with home health services arranged in stable condition. The patient will also bring the incentive spirometry device home and use it regularly is recommended to avoid postoperative lung complications also related to his contused ribs. The patient verbally affirmed understanding when given clear instruction regarding the postoperative care and follow-up including but not limited to seeking immediate medical attention for chest pain, oversedation, shortness of breath, a temperature greater than 101.5 F, severe uncontrolled pain or weakness , loss of bowel or bladder function, choking, lots or drainage, pus discharge or constipation. All questions were answered. Disposition: Home in stable condition. Follow-up Plan: Please follow up with physician insurance administrative assistant and outpatient neurosurgical clinic in 1 week for wound check. ([Tumeric]) 500 MG PO DAILY (Reported) Amlodipine (Amlodipine) 10 Mg Tablet 5 MG PO DAILY (Reported) Aspirin (Aspirin) 81 Mg Tablet.dr 81 MG PO DAILY (Reported) Atorvastatin Calcium (Atorvastatin Calcium) 40 Mg Tablet 40 MG PO DAILY ( Reported) Chlorthalidone (Chlorthalidone) 25 Mg Tablet 25 MG PO DAILY (Reported) Cholecalciferol (Vitamin D3) (Vitamin D) 1,000 Unit Capsule 1,000 UNIT PO DAILY (Reported) Gabapentin (Gabapentin) 300 Mg Capsule 300 MG PO DAILY (Reported) Gluc 2Kcl/Chondr/Stone Hy/Hy AC (Glucosamine & Chondroitin Cap) 1 Each Capsule 1 EACH PO DAILY (Reported) Losartan Potassium (Losartan Potassium) 100 Mg Tablet 100 MG PO DAILY (Reported ) Melatonin (Melatonin 1 mg Tablet) 1 Each Tablet 5 MG PO HS (Reported) Metoprolol Succinate ER (Metoprolol Succinate ER) 25 Mg Tab.er.24h 25 MG PO DAILY (Reported) Multivitamin (Multi Vitamin Daily) 1 Each Tablet 1 EACH PO DAILY (Reported) Nitroglycerin SL (Nitroglycerin SL) 0.4 Mg Tab.subl 0.4 MG SL PRN For Chest Pain (Reported) [place]-3 Fatty Acids/Fish Oil (Fish Oil 1,200 mg Softgel) 1 Each Capsule 1 EACH PO DAILY (Reported) Omeprazole (Omeprazole) 20 Mg Capsule.dr 20 MG PO DAILY (Reported) Tamsulosin ER (Tamsulosin ER) 0.4 Mg Cap.er.24h 0.4 MG PO PM (Reported) Tramadol (Tramadol) 50 Mg Tablet 50 MG PO Q4H PRN PRN For Pain (Reported) Discharge Medications: Tramadol prescription on chart, [place] prescription given during preoperative appointments & already picked up. The patient already has OTC stool softeners & suppositories for constipation as needed. Additional Information The patient was additionally told to ice his ribs regularly as needed 20 minutes on 1 hour off repeat as necessary. Attending Statement: All documentation reviewed & orders authorized by Dr. Vinayak Jordan M.D. copies to: Janak Bain MD, Scott PA-C Jun 18, 2016 10:17
[2016-06-18 10:21] VITALS: BP 138/65; PULSE 76; RESP 20; O2SAT 97
--- NOTE | 2016-06-18 10:59 | NUR ---
Social Work- Brief Note Pt is outpt in a bed with orders for SW to follow up regarding HH RN PT OT. SW met with pt and at bedside regarding this. SW explained role of HH and necessity of homebound status. Pt is not homebound at this time. Pt will not qualify for HH at this time. Pt to discharge home with to transport via POV. Priscilla Velez BAG BUNDLER
--- NOTE | 2016-06-18 14:20 | NUR ---
Social Work- Readiness for Discharge Data: EMR reviewed. Pt is an outpatient in bed. Pt is on day 1 of hospitalization for lumbar stenosis per H&P. SW received Face to Face from regarding RN and PT. SW followed up with pt and pt's at bedside regarding this recommendation. choice list provided. Pt agreeable to referral, chose [facility]. JARED faxed F2F to [facility] RN PT [phone] and provided access. JARED called [facility] to alert them of referral. Pt to discharge home with to transport via POV. Assessment: Pt who would benefit from . Plan: Pt to receive [facility] RN PT services. F2F faxed to [facility]. Pt to discharge home with to transport via POV. Priscilla Velez MSW
--- NOTE | 2016-06-18 17:18 | NUR ---
Discharge Pt discharged at 1530 with to private vehicle. Pt premedicated prior to discharge pain 07/20. VSS, FINE, A&O x 3. IV removed intact. Pt has c/o constipation, given Senna and offered suppository, but declined and will use one at home. Dressings changed and pt able to shower prior to d/c. MELINDA removed intact. Pt has all discharge instructions, rx's and care notes. All questions answered and pt has all belongings.
== END 2016-06-18 15:20 | disposition home health service (06) ==
LOC: SAS 10:18 → OSC 19:53 → SAS 06-18 15:20
PROVIDERS: ATTEND Neurological Surgery
DX: M48.06 Spinal stenosis, lumbar region (principal); M48.08 Spinal stenosis, sacral and sacrococcygeal region; I10 Essential (primary) hypertension; E78.5 Hyperlipidemia, unspecified; I38 Endocarditis, valve unspecified; K57.30 Diverticulosis of large intestine without perforation or abscess without bleeding; M19.90 Unspecified osteoarthritis, unspecified site; N40.1 Benign prostatic hyperplasia with lower urinary tract symptoms; G47.33 Obstructive sleep apnea (adult) (pediatric); K21.9 Gastro-esophageal reflux disease without esophagitis; K44.9 Diaphragmatic hernia without obstruction or gangrene; Z85.828 Personal history of other malignant neoplasm of skin; Z79.82 Long term (current) use of aspirin; Z96.653 Presence of artificial knee joint, bilateral; Z87.442 Personal history of urinary calculi; Z86.73 Personal history of transient ischemic attack (TIA), and cerebral infarction without residual deficits
CPT/HCPCS: 15040; 63047; 63048; 71020; 72020; 81000; 94640; 96374; 96376; 97161; 97167; 97530; J0131; J0690; J1100; J1170; J2250; J2270; J2405; J3010; J7120; Q0177